=== PATIENT | male | born 1995 | race Hispanic/Latino ===

== ENCOUNTER 2017-05-08 12:49 | Emergency (ER) | payer OTHER ==
[~2017-05-08] VITALS: Ht 177.8 cm; Wt 72.7 kg
[~2017-05-08 12:49] MED LIST: AUGMENTIN875 MG PO; Flexeril PO; MOTRIN800 MG PO; ULTRACET1 TABLET PO; VYVANSE20 MG PO
[2017-05-08 12:54] VITALS: BP 119/73
== END 2017-05-08 16:24 | disposition left against medical advice (07) ==
LOC: EME 12:49
DX: R42 Dizziness and giddiness (principal); R11.0 Nausea; F32.9 Major depressive disorder, single episode, unspecified; Z87.891 Personal history of nicotine dependence
CPT/HCPCS: 80053; 82550; 85027; 99281; 99283